=== PATIENT | female | born 1940 | race Caucasian/White ===

== ENCOUNTER 2017-09-14 10:42 | Emergency (ER) | payer MEDICARE, OTHER ==
[~2017-09-14] VITALS: Ht 157.5 cm; Wt 45.4 kg
[~2017-09-14 10:42] MED LIST: ASPIR-LOW81 MG PO; CITALOPRAM HBR10 MG PO; LIPITOR10 MG PO; NICORETTE2 MG MM; NICOTINE PATCH1 EA TD; NORCO 5-325 TA1 EACH PO; OXYCODONE-ACET1 EAC1 PO; PERCOCET 5-3251 EACH PO; PROVENTIL HFA6.7 GM INH; VITAMIN D32000 UNI1 PO
--- NOTE | 2017-09-15 22:48 | EKG ---
[facility] [address] [place] [address] S[address] Sinus tachycardia Nonspecific ST abnormality Abnormal ECG No previous ECGs available Confirmed by HAYDEE BRASHER MD ([id number]) on 09/15/2017 10:48:35 PM Electronically Signed By: HAYDEE BRASHER MD 09/15/17 2248 PATIENT NAME: KALYN MOODY Electrocardiogram DATE OF : 38 PHYSICIAN: HAYDEE BRASHER MD REPORT #: [id number] REPORT IS CONFIDENTIAL AND NOT TO BE RELEASED WITHOUT AUTHORIZATION
== END 2017-09-14 15:47 | disposition home or self-care (01) ==
LOC: ED 10:42
PROC: 0T9B70Z Drainage of Bladder with Drainage Device, Via Natural or Artificial Opening (ICD-10-PCS; principal; 2017-09-14)
DX: R91.8 Other nonspecific abnormal finding of lung field (principal); E11.9 Type 2 diabetes mellitus without complications; F32.9 Major depressive disorder, single episode, unspecified; F41.9 Anxiety disorder, unspecified; E78.5 Hyperlipidemia, unspecified; I10 Essential (primary) hypertension; F17.200 Nicotine dependence, unspecified, uncomplicated; Z88.0 Allergy status to penicillin
CPT/HCPCS: 51701; 71046; 71100; 71260; 73502; 73560; 80053; 81001; 84484; 85025; 93005; 93010; 99284; J7030; Q9967

== ENCOUNTER 2017-10-20 11:01 | Emergency (ER) | payer MEDICARE ==
[~2017-10-20] VITALS: Ht 157.5 cm; Wt 45.4 kg
[2017-10-20] MEDS ORDERED: ASPIRIN81 MG PO (11:29)
[2017-10-20] MEDS ORDERED: SEROQUEL50 MG PO (13:27)
== END 2017-10-20 13:45 | disposition home or self-care (01) ==
LOC: ED 11:01
DX: F03.91 Unspecified dementia, unspecified severity, with behavioral disturbance (principal); R45.1 Restlessness and agitation; R45.851 Suicidal ideations; I10 Essential (primary) hypertension; E11.9 Type 2 diabetes mellitus without complications; M81.0 Age-related osteoporosis without current pathological fracture; Z87.891 Personal history of nicotine dependence; Z88.0 Allergy status to penicillin; Z79.82 Long term (current) use of aspirin; Z79.891 Long term (current) use of opiate analgesic
CPT/HCPCS: 36415; 70450; 71046; 80053; 81001; 85025; 99284

== ENCOUNTER 2018-06-29 01:30 | Emergency (ER) | payer MEDICARE, OTHER ==
[~2018-06-29] VITALS: Ht 157.5 cm; Wt 45.4 kg
[~2018-06-29 01:30] MED LIST changes: +ASPIRIN81 MG PO; +SEROQUEL50 MG PO
== END 2018-06-29 02:35 | disposition home or self-care (01) ==
LOC: ED 01:30
DX: F03.90 Unspecified dementia, unspecified severity, without behavioral disturbance, psychotic disturbance, mood disturbance, and anxiety (principal); F41.8 Other specified anxiety disorders; E78.5 Hyperlipidemia, unspecified; M81.0 Age-related osteoporosis without current pathological fracture; I10 Essential (primary) hypertension; Z86.73 Personal history of transient ischemic attack (TIA), and cerebral infarction without residual deficits; E11.9 Type 2 diabetes mellitus without complications; Z87.891 Personal history of nicotine dependence; Z90.49 Acquired absence of other specified parts of digestive tract; Z88.0 Allergy status to penicillin
CPT/HCPCS: 99284

== ENCOUNTER 2018-07-04 21:40 | Emergency (ER) | payer MEDICARE, OTHER ==
[~2018-07-04] VITALS: Ht 157.5 cm; Wt 45.4 kg
--- OUTSIDE RECORDS SUMMARY | 2018-07-05 03:51 | XMS ---
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 Care History Medical/Surgical 06/15/2018 [facility] - Patient is currently established with [facility]. If patient is seen in the ED during business hours. Please contact CHWs at [facility]. Care Recommendation: This patient has had 5 or more Emergency Department visits in the last 12 months.\T\nbsp; Patient requires education on the scope and purpose of the ED as an acute care provider not a Primary Care Provider and should not be utilized for chronic conditions.\T\nbsp; These are guidelines and the provider should exercise clinical judgment when providing care. E.D. VISIT COUNT (12 MO.) 4 [facility] TOTAL 4 NOTE: Visits indicate total known visits. ED/UCC VISIT TRACKING (12 MO.) 07/04/2018 21:41 [facility] [place] TYPE: Emergency COMPLAINT: - MEDICAL CLEARANCE 06/29/2018 01:30 [facility] [place] TYPE: Emergency COMPLAINT: - ALTERED LOC DIAGNOSES: - Age-related osteoporosis without current pathological fracture - Unspecified dementia without behavioral disturbance - Essential (primary) hypertension - Allergy status to penicillin - Acquired absence of other specified parts of digestive tract - Personal history of nicotine dependence - Personal history of transient ischemic attack (TIA), and cerebral infarction without residual deficits - Hyperlipidemia, unspecified - Type 2 diabetes mellitus without complications - Other specified anxiety disorders 10/20/2017 11:02 [facility] [place] TYPE: Emergency COMPLAINT: - SUICIDAL IDEATION DIAGNOSES: - Unspecified dementia with behavioral disturbance - Altered mental status, unspecified - Suicidal ideations - Age-related osteoporosis without current pathological fracture - Type 2 diabetes mellitus without complications - residential (current) use of opiate analgesic - Allergy status to penicillin - Restlessness and agitation - Essential (primary) hypertension - Personal history of nicotine dependence - 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 09/14/2017 10:43 [facility] [place] TYPE: Emergency COMPLAINT: - SOB,CHEST PAIN DIAGNOSES: - Allergy status to penicillin - Type 2 diabetes mellitus without complications - Shortness of breath - Hyperlipidemia, unspecified - Anxiety disorder, unspecified - Major depressive disorder, single episode, unspecified - Other nonspecific abnormal finding of lung field - Essential (primary) hypertension - Nicotine dependence, unspecified, uncomplicated INPATIENT VISIT TRACKING (12 MO.) No inpatient visits to display in this time frame [email or web address]
== END 2018-07-05 15:44 ==
LOC: ED 21:40
DX: Z00.8 Encounter for other general examination (principal); G30.9 Alzheimer's disease, unspecified; F02.80 Dementia in other diseases classified elsewhere, unspecified severity, without behavioral disturbance, psychotic disturbance, mood disturbance, and anxiety; F41.8 Other specified anxiety disorders; E78.5 Hyperlipidemia, unspecified; I10 Essential (primary) hypertension; Z85.118 Personal history of other malignant neoplasm of bronchus and lung; Z87.891 Personal history of nicotine dependence; Z90.89 Acquired absence of other organs; Z90.722 Acquired absence of ovaries, bilateral; Z88.0 Allergy status to penicillin
CPT/HCPCS: 99284

== ENCOUNTER 2018-07-21 12:18 | Emergency (ER) | payer MEDICARE, OTHER ==
[~2018-07-21] VITALS: Ht 157.5 cm; Wt 45.4 kg
--- OUTSIDE RECORDS SUMMARY | 2018-07-21 12:20 | XMS ---
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 Care History Medical/Surgical 06/15/2018 [facility] - Patient is currently established with [facility]. If patient is seen in the ED during business hours. Please contact CHWs at [facility]. Care Recommendation: This patient has had [...] providing care. E.D. VISIT COUNT (12 MO.) 5 [facility] TOTAL 5 NOTE: Visits indicate total known visits. ED/UCC VISIT TRACKING (12 MO.) 07/21/2018 12:19 [facility] TYPE: Emergency COMPLAINT: - CHEST PAIN 07/04/2018 21:41 [facility] TYPE: Emergency COMPLAINT: - MEDICAL CLEARANCE DIAGNOSES: - Other specified anxiety disorders - Allergy status to penicillin - Acquired absence of other organs - Dementia in other diseases classified elsewhere without behavioral disturbance - Encounter for other general examination - Essential (primary) hypertension - Alzheimer's disease, unspecified - Personal history of nicotine dependence - Acquired absence of ovaries, bilateral - Personal history of other malignant neoplasm of bronchus and lung - Hyperlipidemia, unspecified 06/29/2018 01:30 [facility] [place] TYPE: Emergency [...] Type 2 diabetes mellitus without complications - 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 [place] TYPE: Emergency COMPLAINT: - SOB,CHEST PAIN [...] visits to display in this time frame [email or web address]
[2018-07-21] MEDS ORDERED: SEROQUEL XR1 EACH PO (12:34)
[2018-07-21] MEDS ORDERED: MILK OF MA400 MG/5 M PO (12:39)
--- NOTE | 2018-07-22 16:50 | EKG ---
[facility] [address] [facility] [place] [address] Signed Sinus rhythm with occasional premature ventricular complexes Otherwise normal ECG When compared with ECG of 14-SEP-2017 10:53, premature ventricular complexes are now present Confirmed by JACKY ALCAZAR DO ([id number]) on 07/22/2018 4:50:38 PM Electronically Signed By: JACKY ALCAZAR DO 07/22/18 1650 PATIENT NAME: KALYN MOODY Electrocardiogram DATE OF : 38 PHYSICIAN: JACKY ALCAZAR DO REPORT #: [id number] REPORT IS CONFIDENTIAL AND NOT TO BE RELEASED WITHOUT AUTHORIZATION
== END 2018-07-21 16:20 | disposition home or self-care (01) ==
LOC: ED 12:18
DX: R07.89 Other chest pain (principal); E11.9 Type 2 diabetes mellitus without complications; F32.9 Major depressive disorder, single episode, unspecified; F41.9 Anxiety disorder, unspecified; E78.5 Hyperlipidemia, unspecified; I10 Essential (primary) hypertension; Z86.73 Personal history of transient ischemic attack (TIA), and cerebral infarction without residual deficits; Z87.891 Personal history of nicotine dependence; Z88.0 Allergy status to penicillin; Z79.899 Other long term (current) drug therapy; Z85.118 Personal history of other malignant neoplasm of bronchus and lung
CPT/HCPCS: 71046; 80053; 84484; 85025; 93005; 93010; 99285-25

== ENCOUNTER 2020-01-15 10:45 | Emergency (ER) | payer MEDICARE ==
[~2020-01-15] VITALS: Ht 157.5 cm; Wt 68.0 kg
[~2020-01-15 10:45] MED LIST changes: +MILK OF MA400 MG/5 M PO; +SEROQUEL XR1 EACH PO
[2020-01-15] MEDS ORDERED: BUSPIRONE HCL5 MG PO (11:20)
[2020-01-15] MEDS ORDERED: PROZAC20 MG PO (11:20)
[2020-01-15] MEDS ORDERED: TYLENOL325 MG PO (11:21)
== END 2020-01-15 16:04 | disposition home or self-care (01) ==
LOC: ED 10:45
DX: C34.90 Malignant neoplasm of unspecified part of unspecified bronchus or lung (principal); K59.00 Constipation, unspecified; E11.9 Type 2 diabetes mellitus without complications; F32.9 Major depressive disorder, single episode, unspecified; F41.9 Anxiety disorder, unspecified; E78.5 Hyperlipidemia, unspecified; I10 Essential (primary) hypertension; G30.9 Alzheimer's disease, unspecified; F02.80 Dementia in other diseases classified elsewhere, unspecified severity, without behavioral disturbance, psychotic disturbance, mood disturbance, and anxiety; Z87.891 Personal history of nicotine dependence; Z88.0 Allergy status to penicillin; Z79.899 Other long term (current) drug therapy
CPT/HCPCS: 71101; 71260; 74019; 80053; 81001; 83690; 85025; 96374; 96375; 96376; 99285-25; J1885; J2060; Q9967